=== PATIENT | female | born 1960 | race Two or more races ===

== ENCOUNTER 2017-04-19 10:18 | Emergency (ER) | payer MEDICAID ==
[~2017-04-19] VITALS: Ht 167.6 cm; Wt 72.6 kg
[2017-04-19 10:18] VITALS: BP 124/66
[2017-04-19] MEDS ORDERED: KETOROLAC TROMETHAMINE INJ 30 MG/ML VIAL ONE (11:09)
[2017-04-19] MEDS ORDERED: ACETAMINOPHEN ES 500 MG TABLET ONE (11:09)
[2017-04-19] MEDS ORDERED: KETOROLAC TROMETHAMINE INJ 60 MG/2 ML VIAL IM ONE (11:30)
[2017-04-19] MEDS ORDERED: ACETAMINOPHEN ES 500 MG TABLET PO ONE (11:30)
== END 2017-04-19 12:33 | disposition home or self-care (01) ==
LOC: ER 10:23
DX: M46.96 Unspecified inflammatory spondylopathy, lumbar region (principal)
CPT/HCPCS: 72110; 96372; 99284; A4606; J1885; Z7610

== ENCOUNTER 2019-05-16 08:28 | Emergency (ER) | payer MEDICAID ==
[~2019-05-16] VITALS: Ht 172.7 cm; Wt 76.2 kg
[2019-05-16 08:31] VITALS: BP 121/73
--- NOTE | 2019-05-16 08:32 | NUR ---
PT CAME INTO THE ED C/O VAGINAL AREA RASH / ITCHING X 4 DAYS. PT ENDORSES VAGINAL PAIN 5/10 PS. PT AAOX4, VSS, BREATHING EVEN AND UNLABORED ON ROOM AIR W/ NAD. PT CONNECTED TO THE MONITOR.
--- NOTE | 2019-05-16 08:50 | NUR ---
AT BEDSIDE FOR EVAL.
--- NOTE | 2019-05-16 08:55 | NUR ---
URINE SPECIMEN COLLECTED AND SENT TO LAB.
--- NOTE | 2019-05-16 08:56 | NUR ---
DR TAYLOR AND SAMY CAMACHO AT BEDSIDE FOR PELVIC EXAM.
--- NOTE | 2019-05-16 09:12 | NUR ---
SAMPLES SENT TO LAB
[2019-05-16] MEDS ORDERED: FLUCONAZOLE (100 MG) 100 MG TABLET ONE (09:16)
--- NOTE | 2019-05-16 09:27 | NUR ---
Patient discharged to home in stable condition. Written and verbal after care instructions given. Patient verbalizes understanding of instruction.
[2019-05-16] MEDS ORDERED: FLUCONAZOLE (100 MG) 100 MG TABLET PO ONE (09:30)
== END 2019-05-16 09:29 | disposition home or self-care (01) ==
LOC: ER 08:28
DX: B37.3 Candidiasis of vulva and vagina (principal); E11.9 Type 2 diabetes mellitus without complications
CPT/HCPCS: 82962-TC